=== PATIENT | male | born 1940 | race Caucasian/White ===

== ENCOUNTER → 2016-08-23 | Outpatient (CLI) | payer BC ==
[~2016-08-23] MED LIST: ALPR-411 PO; AMLO-110 PO; ASPI81TA28 PO; ATOR-22 PO; CHOL1000 PO; COEN100C7 PO; ETOD500T95 PO; INSPMPNVLG; LISI40TA PO; MULT-506 PO; OXYC-57 PO
--- NOTE | 2016-08-23 13:34 | DIAGNOSTIC IMAGING REPORT ---
CHEST 2 VIEWS ROUTINE CLINICAL HISTORY: Pulmonary nodule POSTOPERATIVE STUDY COMPARISON STUDY: 08/13/1960 FINDINGS: The cardiac and mediastinal contours remain stable. The subcutaneous emphysema has resolved. There is no pneumothorax. There is no focal pulmonary consolidation. There is blunting of the left lateral costophrenic angle consistent with pleural fluid/scarring. IMPRESSION: 1. Blunting of the left lateral costophrenic angle consistent with pleural fluid/scarring 2. Resolution of the subcutaneous emphysema 3. No evidence of acute parenchymal consolidation Electronically signed by: Tariq Denise M.D. 08/23/2016 1:32 PM
== END | disposition home or self-care (01) ==
LOC: C.RAD1850 10:59
PROVIDERS: ATTEND Surgery
DX: R91.1 Solitary pulmonary nodule (principal)

== ENCOUNTER → 2016-09-13 | Outpatient (CLI) | payer BC ==
--- NOTE | 2016-09-13 16:00 | DIAGNOSTIC IMAGING REPORT ---
LEFT LOWER EXTREMITY VENOUS DOPPLER CLINICAL HISTORY: Lower leg edema. COMPARISON STUDY: Bilateral lower extremity venous Doppler November 27 2012. TECHNIQUE: Sonography of the deep venous system of the left lower extremity was performed. Compression and augmentation were evaluated. FINDINGS: The left common femoral, superficial femoral and popliteal veins were compressible. Augmentation was normal. Flow was shown within the deep calf vessels. Note was made of a 9.3 x 2.3 x 2.8 cm complex cystic abnormality within the left popliteal fossa that extends into the medial left calf. IMPRESSION: 1. No evidence of deep venous thrombus within the left lower extremity. 2. 9.3 x 2.3 x 2.8 cm complex cystic abnormality extending from the left popliteal fossa to the proximal left calf. While nonspecific, the findings favor a popliteal cyst, possibly ruptured. A follow-up ultrasound in 2 months is recommended. Electronically signed by: Randy Ballard M.D. 09/13/2016 3:58 PM Dictated Date/Time: 09/13/2016 3:56 PM
== END | disposition home or self-care (01) ==
LOC: C.ULTR 15:03
PROVIDERS: ATTEND Physical Medicine & Rehabilitation Sports Medicine
DX: R60.0 Localized edema (principal)

== ENCOUNTER → 2016-09-13 | Outpatient (CLI) | payer BC ==
[2016-09-13 12:32] LABS: BASO % 0.5 %; BASO ABS # 0.03 K/uL (0-0.2); COMPLETE YES; EOS % 3.8 %; HEMATOCRIT 42.6 % (42-52); IG% 0.2 %; LYMPH % 27.1 %; LYMPH ABS # 1.65 K/uL (1.2-3.4); MEAN CELL VOLUME 88.8 fL (80-100); MEAN CORPUSCULAR HEMOGLOBIN 31.7 pg (25-34); MEAN CORPUSCULAR HGB CONC 35.7 g/dl (32-36); MEAN PLATELET VOLUME 10.6 fL (7.4-10.4); MONO % 13.6 %; NEUT % 54.8 %; PLATELET COUNT 155 K/uL (130-400); WHITE BLOOD COUNT 6.09 K/uL (4.8-10.8)
[2016-09-13 12:45] LABS: ALKALINE PHOSPHATASE 104 U/L (45-117); ALT/SGPT 41 U/L (12-78); AST/SGOT 26 U/L (15-37); BLOOD UREA NITROGEN 19 mg/dl (7-18); BUN/CREATININE RATIO 22.6 (10-20); CALCIUM 9.5 mg/dl (8.5-10.1); CARBON DIOXIDE 29 mmol/L (21-32); CHLORIDE 105 mmol/L (98-107); CREATININE 0.82 mg/dl (0.60-1.40); GLUCOSE 66 mg/dl (70-99); POTASSIUM 3.9 mmol/L (3.5-5.1); SODIUM 141 mmol/L (136-145)
[2016-09-13 12:47] LABS: ALB/GLOB RATIO 0.9 (0.9-2); C-REACTIVE PROTEIN 0.74 mg/dl (0-0.29)
[2016-09-13 13:09] LABS: ESTIMATED AVERAGE GLUCOSE 140 mg/dl; HA1C FLAG Normal (Normal)
[2016-09-15 15:13] LABS: QUANTIF TB AG-NIL <0.00 IU/ML; QUANTIFERON NIL 0.42 IU/ML
[2016-09-15 15:59] LABS: 18KDIGG BAND NONREACTIVE (NONREACTIVE); 23KDIGG BAND NONREACTIVE (NONREACTIVE); 23KDIGM BAND NONREACTIVE (NONREACTIVE); 28KDIGG BAND NONREACTIVE (NONREACTIVE); 30KDIGG BAND NONREACTIVE (NONREACTIVE); 39KDIGG BAND NONREACTIVE (NONREACTIVE); 39KDIGM BAND NONREACTIVE (NONREACTIVE); 41KDIGG BAND NONREACTIVE (NONREACTIVE); 41KDIGM BAND NONREACTIVE (NONREACTIVE); 45KDIGG BAND NONREACTIVE (NONREACTIVE); 58KDIGG BAND NONREACTIVE (NONREACTIVE); 66KDIGG BAND NONREACTIVE (NONREACTIVE); 93KDIGG BAND NONREACTIVE (NONREACTIVE)
== END | disposition home or self-care (01) ==
LOC: C.LAB1850 10:16
PROVIDERS: ATTEND Internal Medicine Infectious Disease
DX: E55.9 Vitamin D deficiency, unspecified (principal); E10.9 Type 1 diabetes mellitus without complications; M25.562 Pain in left knee; R60.0 Localized edema

== ENCOUNTER → 2016-09-21 | Outpatient (CLI) | payer BC ==
--- NOTE | 2016-09-21 09:02 | DIAGNOSTIC IMAGING REPORT ---
CHEST 2 VIEWS ROUTINE CLINICAL HISTORY: R91.1 Lung nodule seen on imaging [id number] lung nodule COMPARISON STUDY: 08/23/2016 FINDINGS: Chronic blunting left lateral costophrenic angle. This radiographically is slightly improved from the prior exam. Lungs otherwise are clear. No evidence for cardiac enlargement. Moderate degenerative change thoracic spine. IMPRESSION: Stable to slightly improved exam. Moderate residual scarring left lateral costophrenic angle. No acute or interval process. Electronically signed by: Yemi Doshi M.D. 09/21/2016 9:01 AM Dictated Date/Time: 09/21/2016 8:58 AM
== END | disposition home or self-care (01) ==
LOC: C.RAD1850 08:35
PROVIDERS: ATTEND Internal Medicine
DX: R91.1 Solitary pulmonary nodule (principal); J18.8 Other pneumonia, unspecified organism

== ENCOUNTER → 2016-09-21 | Outpatient (CLI) | payer BC ==
--- NOTE | 2016-10-08 10:07 | CODING QUERY NO DIAGNOSIS ---
TREATMENT RENDERED WITHOUT A DIAGNOSIS Dr. Mireles, To promote full compliance with coding requirements relating to patient care, physician participation is requested in all cases of generation technician uncertainty. Please assist us with providing a diagnosis/symptom for the test(s) below: A diagnosis/symptom was not documented on your Order. A valid diagnosis/symptom is required to bill all insurances. Please remember that we are unable to code a diagnosis of rule out, probable, possible, questionable, or suspected. Tests that require a diagnosis: * AFB SEQUENCING AND STAIN DIAGNOSIS: DATE OF SERVICE: 09/21/16 Provider Signature: Date: Thank you Mike Markham [facility] Once completed, please kindly fax back to [phone] For questions please call [phone]
== END | disposition home or self-care (01) ==
LOC: C.LABSPEC 12:58
PROVIDERS: ATTEND Pathology Anatomic Pathology & Clinical Pathology
DX: J18.8 Other pneumonia, unspecified organism (principal)

== ENCOUNTER → 2016-10-15 | Outpatient (CLI) | payer BC ==
[2016-10-15 13:46] LABS: ESTIMATED AVERAGE GLUCOSE 140 mg/dl; HA1C FLAG Normal (Normal)
== END | disposition home or self-care (01) ==
LOC: C.LAB1850 12:22
PROVIDERS: ATTEND Internal Medicine Endocrinology, Diabetes & Metabolism
DX: E10.9 Type 1 diabetes mellitus without complications (principal)

== ENCOUNTER → 2016-10-15 | Outpatient (CLI) | payer BC ==
--- NOTE | 2016-10-15 15:46 | DIAGNOSTIC IMAGING REPORT ---
LEFT KNEE 3 VIEWS HISTORY: LEFT KNEE PAIN COMPARISON: None. FINDINGS: There is a left total knee arthroplasty. The hardware appears intact. No fracture or dislocation. No abnormal periprosthetic lucency. Mild osteoarthritis within the medial compartment of the right knee. Moderate left knee effusion. IMPRESSION: 1. Left total knee arthroplasty. The hardware appears intact. 2. Moderate left knee effusion. Electronically signed by: Nav Calloway M.D. 10/15/2016 3:45 PM Dictated Date/Time: 10/15/2016 3:44 PM
== END | disposition home or self-care (01) ==
LOC: C.RDSM 11:35
PROVIDERS: ATTEND Physical Medicine & Rehabilitation Sports Medicine
DX: M25.562 Pain in left knee (principal); Z96.652 Presence of left artificial knee joint; M25.462 Effusion, left knee; E10.9 Type 1 diabetes mellitus without complications

== ENCOUNTER → 2017-01-20 | Outpatient (CLI) | payer BC ==
[2017-01-20 12:35] LABS: ESTIMATED AVERAGE GLUCOSE 169 mg/dl; HA1C FLAG Normal (Normal)
[2017-01-20 12:49] LABS: CREATININE 0.86 mg/dl (0.60-1.40)
[2017-01-20 12:59] LABS: CHOLESTEROL 115 mg/dl (0-200); CHOLESTEROL/HDL RATIO 2.3; HDL CHOLESTEROL 51 mg/dl; LDL CHOLESTEROL CALCULATED 54 mg/dl; TRIGLYCERIDES 52 mg/dl (0-150); VERY LOW DENSITY LIPOPROT CALC 10 mg/dl
== END | disposition home or self-care (01) ==
LOC: C.LAB1850 10:44
PROVIDERS: ATTEND Internal Medicine Endocrinology, Diabetes & Metabolism
DX: I10 Essential (primary) hypertension (principal); E78.5 Hyperlipidemia, unspecified; E10.42 Type 1 diabetes mellitus with diabetic polyneuropathy; R20.0 Anesthesia of skin; E55.9 Vitamin D deficiency, unspecified; E10.21 Type 1 diabetes mellitus with diabetic nephropathy; R80.9 Proteinuria, unspecified

== ENCOUNTER → 2017-04-21 | Outpatient (CLI) | payer BC ==
[~2017-04-21] MED LIST changes: -OXYC-57 PO
[2017-04-21 12:49] LABS: ESTIMATED AVERAGE GLUCOSE 160 mg/dl; HA1C FLAG Normal (Normal)
== END | disposition home or self-care (01) ==
LOC: C.LAB1850 10:02
PROVIDERS: ATTEND Internal Medicine Endocrinology, Diabetes & Metabolism
DX: E10.9 Type 1 diabetes mellitus without complications (principal)

== ENCOUNTER → 2017-08-02 | Outpatient (CLI) | payer BC ==
[2017-08-02 17:55] LABS: RATIO 129.3 mcg/mg (0-30.0)
[2017-08-03 07:56] LABS: ESTIMATED AVERAGE GLUCOSE 163 mg/dl; HA1C FLAG Normal (Normal)
== END | disposition home or self-care (01) ==
LOC: C.LAB1850 16:21
PROVIDERS: ATTEND Internal Medicine Endocrinology, Diabetes & Metabolism
DX: E10.9 Type 1 diabetes mellitus without complications (principal)

== ENCOUNTER → 2017-11-11 | Outpatient (CLI) | payer BC ==
[~2017-11-11] MED LIST changes: +ASCO10003 PO; +GLUCTAB7 PO; +MISCCAP80 PO
== END | disposition home or self-care (01) ==
LOC: C.LABSPEC 10:08
PROVIDERS: ATTEND Urology
DX: R32 Unspecified urinary incontinence (principal)

== ENCOUNTER → 2017-11-24 | Outpatient (CLI) | payer BC | END | disposition home or self-care (01) | LOC: C.LAB 13:07 | PROVIDERS: ATTEND Nurse Practitioner Adult Health | DX: N39.0 Urinary tract infection, site not specified (principal) ==

== ENCOUNTER → 2018-01-03 | Outpatient (CLI) | payer BC ==
[2018-01-04 06:04] LABS: HEMOGLOBIN A1C 6.4 % (4.5-5.6)
== END | disposition home or self-care (01) ==
LOC: C.LAB1850 17:11
PROVIDERS: ATTEND Internal Medicine Endocrinology, Diabetes & Metabolism
DX: E10.9 Type 1 diabetes mellitus without complications (principal)

== ENCOUNTER → 2018-03-20 | Outpatient (CLI) | payer BC ==
[~2018-03-20] MED LIST changes: -AMLO-110 PO; +AMLO5TAB3 PO
--- NOTE | 2018-03-20 17:08 | DIAGNOSTIC IMAGING REPORT ---
LEFT HIP 2 VIEWS HISTORY: L HIP INJURY COMPARISON: None. FINDINGS: There is no fracture or dislocation. Soft tissues are unremarkable. The visualized pelvic bones are intact. Cartilage spaces are maintained for age. IMPRESSION: No fracture or dislocation within the left hip. Electronically signed by: Nav Calloway M.D. 03/20/2018 5:07 PM Dictated Date/Time: 03/20/2018 5:06 PM
== END | disposition home or self-care (01) ==
LOC: C.RAD 15:56
PROVIDERS: ATTEND Chiropractor Orthopedic
DX: S70.02XA Contusion of left hip, initial encounter (principal); X58.XXXA Exposure to other specified factors, initial encounter

== ENCOUNTER 2020-07-15 06:42 | Inpatient (IN) ==
--- NOTE | 2020-06-05 13:32 | PAT Medication Instructions ---
Medication Instructions Date of Service June 05, 2020 Home Medications Medication Instructions Recorded amlodipine 5 mg tablet 5 mg PO QPM #90 tab 05/30/19 atorvastatin 20 mg tablet 20 mg PO PM #90 tab 05/30/19 lisinopril 40 mg tablet 40 mg PO QPM #90 tab 05/30/19 Novolog U-100 Insulin aspart 100 150 units CONTINUOUS SUBCUTANEOUS 10/29/19 unit/mL subcutaneous solution INFUSION DAILY #140 ml NS Vitamin C 1 g PO BID alprazolam [Xanax] 0.125 mg PO HS PRN cholecalciferol (vitamin D3) [Vitamin D3] 5,000 unit PO QAM coenzyme Q10 [CoQ-10] 200 mg PO QAM etodolac 500 mg PO BID PRN multivitamin 1 tab PO QAM amlodipine 5 mg tablet 5 mg PO QPM atorvastatin 20 mg tablet 20 mg PO PM lisinopril 40 mg tablet 40 mg PO QPM omega 0-qro-uoz-fish oil 1,000 mg (120 mg-180 mg) capsule 2 cap PO DAILY vitamin E 200 unit capsule 400 units PO QAM Novolog U-100 Insulin aspart 100 unit/mL subcutaneous solution 150 units CONTINUOUS SUBCUTANEOUS INFUSION DAILY ASK your surgeon for instructions etodolac 500 mg PO BID PRN STOP taking 2 weeks before surgery coenzyme Q10 [CoQ-10] 200 mg PO QAM omega 5-pgv-sfx-fish oil 1,000 mg (120 mg-180 mg) capsule 2 cap PO DAILY vitamin E 200 unit capsule 400 units PO QAM DO NOT take the morning of surgery Vitamin C 1 g PO BID cholecalciferol (vitamin D3) [Vitamin D3] 5,000 unit PO QAM multivitamin 1 tab PO QAM Take evening before surgery Vitamin C 1 g PO BID alprazolam [Xanax] 0.125 mg PO HS PRN (if needed) amlodipine 5 mg tablet 5 mg PO QPM atorvastatin 20 mg tablet 20 mg PO PM lisinopril 40 mg tablet 40 mg PO QPM Novolog U-100 Insulin aspart 100 unit/mL subcutaneous solution 150 units CONTINUOUS SUBCUTANEOUS INFUSION DAILY (set insulin pump to basal rate at midnight prior to surgery and do not bolus insulin morning of surgery) OTHERWISE NOTHING TO EAT OR DRINK AFTER MIDNIGHT Other Notes If you have any questions please call us at [phone] or [phone] or [phone] or [phone]
--- NOTE | 2020-06-09 08:27 | Anesthesiology Consultation ---
Date of Service June 09, 2020 Assessment & Plan (1) Encounter for pre-operative examination: Chart Review Chart Review: Acceptable Risk for Surgery (pending preop Covid testing and urology note from 07/02/20 ) and Patient seen in Pre Admission Testing - Check BSG AM DOS Hx of urethral stricture - patient self caths 3 x weekly- pt is very hesitant to have urinary cath prior to surgery. Surgeon's office is aware- patient is seeing urology on 07/02/20- will make sure urology does not have any specific recommendations Per PAT appt on 06/09/20, patient denies any recent travel. No known Covid positive contacts or Covid related symptoms. Educated patient to follow up with surgeon's office regarding Covid testing. Educated on importance of self quarantining, social distancing and wearing mask in public both for the patient and household contacts. Seen by cardio 05/02/20= seen for preop cardio consultation. " Risks explained. No further cardiac testing is needed at this time. No overt cardiac contraindications to surgery as scheduled. " Recommend periodically routine resting echocardiography and ambulatory electrocardiograms given the frequent asymptomatic premature ventricular complexes. Robotic assisted laparoscopic left inguinal hernia repair 10/30/2018 = done under [facility] with [facility] #2. ETT #8.0. No anesthesia issues noted per anesthesia record. Teaching & Discussion Pre-Anesthesia Teaching/Discussion Notes: Instructed NPO after midnight before surgery,except medications with 15 cc of water. Medication instructions provided according to the PAT guidelines. History Surgery Operation Date: 07/15/20 07:00 Proposed Procedures p Left Total Knee Revision - Devaughn Cantu MD Height/Weight Height: 6 ft Weight: 87.5 kg Allergies Allergy/AdvReac Type Severity Reaction Status Date / Time shellfish derived Allergy Severe SWELLING Verified 05/29/20 13:33 OF THROAT diltiazem Allergy Unknown UNKNOWN Verified 05/29/20 13:33 fentanyl Allergy Unknown LOOOPY Verified 06/09/20 08:31 FEELING-DIDN'T FEEL RIGHT simvastatin Allergy Unknown UNKNOWN Verified 05/29/20 13:33 Sulfa (Sulfonamide AdvReac Unknown GI SYMPTOMS Verified 05/29/20 13:33 Antibiotics) Medications Home Medications Medication Instructions Recorded Confirmed Last Taken Vitamin C 1 g PO BID 09/21/18 05/29/20 Unknown alprazolam [Xanax] 0.125 mg PO HS PRN 09/21/18 05/29/20 Unknown cholecalciferol (vitamin D3) 5,000 unit PO QAM 09/21/18 05/29/20 Unknown [Vitamin D3] coenzyme Q10 [CoQ-10] 200 mg PO QAM 09/21/18 05/29/20 Unknown etodolac 500 mg PO BID PRN 09/21/18 05/29/20 Unknown multivitamin 1 tab PO QAM 09/21/18 05/29/20 Unknown amlodipine 5 mg tablet 5 mg PO QPM #90 tab 05/30/19 05/29/20 Unknown atorvastatin 20 mg tablet 20 mg PO PM #90 tab 05/30/19 05/29/20 Unknown lisinopril 40 mg tablet 40 mg PO QPM #90 tab 05/30/19 05/29/20 Unknown omega 1-imk-qsw-fish oil 1,000 mg 2 cap PO DAILY cap 07/23/19 05/29/20 Unknown (120 mg-180 mg) capsule vitamin E 200 unit capsule 400 units PO QAM cap 07/23/19 05/29/20 Unknown Novolog U-100 Insulin aspart 100 150 units CONTINUOUS SUBCUTANEOUS 10/29/1904/10 Unknown unit/mL subcutaneous solution INFUSION DAILY #140 ml NS Past Medical History Medical History (Updated 06/09/20 @ 15:31 by Jaclyn Leonard PA-C) Arrhythmia follows with Dr. 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 Does have to self cath three times weekly History of melanoma S/p removal History of sepsis 2012 R/T INFECTION POST ORAL SURGERY Hyperlipidemia Hypertension IDDM (insulin dependent diabetes mellitus) Insulin pump in place Mass of left lung H/O, this was resected Ureteral stricture Exercise / Class Metabolic Activity II 4-5 Yardwork/Stairs/Walk up hill (one flight of stairs- no chest pain or SOB- increased knee pain ) Past Family History Family History Mother Family history of diabetes mellitus Past Surgical History Surgical History H/O left inguinal hernia repair 10/30/2018 [facility] History of carpal tunnel release RT History of colonoscopy History of cystoscopy History of dilation of urethra History of esophagogastroduodenoscopy (EGD) History of lumbar spinal fusion L4-L5; TITANIUAM SCREWS X 2 PRESENT History of melanoma excision History of oral surgery History of surgery THORACOSCOPY W/ LLL WEDGE RESECTION R/T BENIGN MASS History of tonsillectomy History of total knee replacement LT - 2012 Past Anesthesia History No Hx of Anesthesia Complications and No Family Hx of Anesthesia Complications History of PONV History of PONV (only with ether - no issues in the past 30 years ) and Hx of Motion Sickness Social History Smoking Status: Never smoker Do You Dip or Chew Tobacco: No Hx Alcohol Use: Yes Alcohol type: wine alcohol intake frequency: a few times a week Hx Substance Use: No substance use type: does not use Review of Systems Occ snoring- when really fatigued Patient denies chest pain, shortness of breath, dyspnea on exertion, reflux, cough, wheezing, palpitations. No hx of seizures, stroke, MD. No hx of blood clots or blood transfusions Physical Exam Vital Signs VITALS BP 141/73 P 68 TEMP 98.3 SP02 97% RESP 16 Constitutional no acute distress ENMT Mouth: no TMJ clicking Thyromental Distance: > or= 3.5 Finger Breadths (4.0) Mallampati Class: I Full upper denture Missing bottom molars Caps to molars on bottom Neck + limited neck extension (mild ) Respiratory normal respiratory effort; no respiratory distress Auscultation: lungs clear to auscultation bilaterally; no wheezes Cardiovascular Rate/Rhythm: regular rate and regular rhythm (occasional extra beat ) Heart Sounds: no murmur Vessels: no carotid bruit Musculoskeletal Spine: no pain with cervical ROM Neurologic moves all extremities Psychiatric Orientation: alert Testing Laboratory Results 06/09/20 08:58 06/09/20 08:58 PT 11.5 Seconds (9.0-12.0) 06/09/20 08:58 INR 1.1 (0.9-1.1) 06/09/20 08:58 APTT 28.1 Seconds (21.0-31.0) 06/09/20 08:58 Hemoglobin A1c 7.1 % (4.5-5.6) H 06/09/20 08:58 Blood Type AB Negative 06/09/20 08:58 Antibody Screen NEGATIVE 06/09/20 08:58 Electrocardiogram Date: 05/02/20 Sinus rhythm with first-degree AV block with frequent PVCs at 72 bpm. Right bundle branch block. Compared to EKG from September 21, 2019no significant change was found per cardio. (EKG done at cardio clearance appt) Chest X-Ray Date: 06/09/20 Findings: + NAD There is minor left basilar atelectasis/scarring. Echocardiogram Date: 03/16/18 EF: 60-64% LV Function: normal RWMA: + none Other Findings: + LVH (Moderate concentric) and + diastolic dysfunction (mildly abnormal (Grade I)) Valvular Disease: + MR (Mild secondary) Stress Test Date: 04/11/20 Type: nuclear Gated SPECT imaging reveals normal myocardial thickening and wall motion. Stress EKG response was negative for ischemia with ongoing right bundle branch block with resultant repolarization abnormalities and upsloping ST segments noted in the inferior and lateral leads. LV EF= 64%. Frequent PVCs were noted on resting and stress EKG tracings.
--- NOTE | 2020-06-09 09:24 | XRay Report ---
XR chest Pre-admission PA/Lat CLINICAL HISTORY: Preoperative chest COMPARISON STUDY: 08/13/2016 FINDINGS: The cardiac and mediastinal contours are normal. There is no evidence of focal pulmonary co nsolidation. There is no evidence of failure. No pleural effusions are visualized.[There is minor lef t basilar atelectasis/scarring. Degenerative changes are present within the dorsal spine. IMPRESSION: No active disease in the chest. ACT 112: Negative or not required by law. Electronically signed by: Tariq Denise M.D. 06/09/2020 9:22 AM
[2020-06-09 10:13] LABS: Basophils # (auto) 0.01 K/uL (0-0.2); Basophils % (auto) 0.2 %; Eosinophils # (auto) 0.07 K/uL (0-0.5); Eosinophils % (auto) 1.5 %; Hematocrit (blood only) 40.4 % (42-52); Immature Granulocytes # (auto) 0.01 K/uL (0.00-0.02); Immature Granulocytes % (auto) 0.2 %; Lymphocytes # (auto) 1.14 K/uL (1.2-3.4); Lymphocytes % (auto) 24.8 %; Mean Corpuscular Hemoglobin 32.2 pg (25-34); Mean Corpuscular Hgb Conc 34.7 g/dL (32-36); Mean Corpuscular Volume 92.9 fL (80-100); Mean Platelet Volume 10.8 fL (7.4-10.4); Monocytes # (auto) 0.45 K/uL (0.11-0.59); Monocytes % (auto) 9.8 %; Neutrophils # (auto) 2.91 K/uL (1.4-6.5); Neutrophils % (auto) 63.5 %; Platelet Count 163 K/uL (130-400); RDW Coefficient of Variation 12.1 % (11.5-14.5); Red Blood Count 4.35 M/uL (4.7-6.1); White Blood Count 4.59 K/uL (4.8-10.8)
[2020-06-09 10:33] LABS: INR 1.1 (0.9-1.1); Partial Thromboplastin Time 28.1 Seconds (21.0-31.0); Prothrombin Time 11.5 Seconds (9.0-12.0)
[2020-06-09 10:41] LABS: Estimated Average Glucose 157 mg/dl; Hemoglobin A1C 7.1 % (4.5-5.6)
[2020-06-09 10:59] LABS: BUN Creatinine Ratio 27.8 (10-20); Blood Urea Nitrogen 26 mg/dl (7-18); Calcium 9.3 mg/dl (8.5-10.1); Carbon Dioxide 32 mmol/L (21-32); Chloride 104 mmol/L (98-107); Creatinine Clr Calc Pharmacy 67.6 ml/min; Est GFR (African American) 87.8; Est GFR (Non-African American) 75.7; Glucose 218 mg/dl (70-99); Potassium 4.7 mmol/L (3.5-5.1); Sodium 140 mmol/L (136-145)
[2020-06-09 11:00] LABS: C Reactive Protein < 0.29 mg/dl (0-0.29)
--- NOTE | 2020-07-10 21:46 | History and Physical Report ---
DATE OF ADMISSION: 07/15/2020 CHIEF COMPLAINT: Left knee pain, discomfort and recurrent swelling after knee replacement surgery. HISTORY OF PRESENT ILLNESS: The patient is an 79-year-old gentleman well known to me from multiple orthopedic procedures and visits in the past. I had actually scoped his left knee back in 2010. He continued to have persistent pain and then went to had a knee replacement done by Dr. Peralta in 2012. This was done with the [employer] Journey II knee. He has been pretty miserable ever since then. He had no obvious infection or problems with wound healing. He has had recurrent swelling. There was one question of an infected bursa at some point, but really did not way out anything obvious that needed further intervention surgically. He has continued to have persistent pain, discomfort and swelling in his knee. He continues to maintain a pretty active lifestyle, but it hurts him and bothers him all the time. We did an infectious workup with a normal sed rate and C-reactive protein on several occasions. We aspirated his knee as well with a negative culture and a negative Synovasure test. X-rays show fairly significant lucency around the femoral component, particularly anterior flange and some slight lucencies around the tibial tray. He is hoping to have this revised and improved. He did have a bone scan, was suggested and possible aseptic loosening as well. We had scheduled him for surgery several occasions where he has canceled for several reasons. He now would like to consider revising this. PAST MEDICAL HISTORY: 1. Diabetes with insulin pump. 2. Hypertension. 3. Elevated cholesterol. 4. Low back pain status post fusion. PAST SURGICAL HISTORY: Include: 1. Left knee replacement done 06/15/2013. 2. Left knee arthroscopy done in 09/2010. 3. Lung resection. 4. Spinal fusion in 2018. 5. Herniorrhaphy. 6. Right carpal tunnel release. 7. TURP. ALLERGIES: FENTANYL, SIMVASTATIN, SULFA, SHELLFISH, DILTIAZEM. CURRENT MEDICINES: 1. Xanax 0.5 mg at bedtime p.r.n. 2. Amlodipine. 3. Vitamin C. 4. Atorvastatin. 5. Vitamin D3. 6. Coenzyme Q. 7. Benadryl. 8. Etodolac. 9. Lisinopril. 10. Methenamine. 11. Multivitamin. 12. Insulin. 13. Vitamin E. 14. Fish oil. SOCIAL HISTORY: An 79-year-old male. He is . He does not smoke. No significant alcohol intake. FAMILY HISTORY: Noncontributory. REVIEW OF SYSTEMS: Significant for long-term diabetes with an A1c of 7.1. No current chest pain or shortness of breath. No history of DVT or PE. No known bleeding problems. He does have problems urinating due to this TURP procedure. PHYSICAL EXAMINATION: GENERAL: Shows a pleasant elderly male. Looks to be in pretty good shape. Looks younger than his stated age. HEENT: Benign. NECK: Supple, no lymphadenopathy. LUNGS: Clear to auscultation. HEART: Has a regular rate and rhythm. ABDOMEN: Soft, nontender, nondistended. EXTREMITIES: Grossly neurovascularly intact except as follows: Examination of the left knee reveals the patient ambulates with a slight bit of a limp. He has got a well-healed incision. He has got a moderate size knee effusion. No gross instability to his knee on exam. Range of motion about 5 degrees short of full extension, 120 degrees of flexion. There is no pain with hip motion. He is neurologically intact. X-RAYS: X-rays of the left knee were reviewed and compared to previous films. He has got evidence of the [employer] total knee replacement. He has got lucency underneath the anterior flange of the femoral component, which is pretty chronic and stable. Some slight lucencies around the tibial tray. A bone scan was reviewed. Does show some moderate uptake around the tibial tray and some fairly mild uptake around the femur. This suggestive of a possible lucency. LABS: He has had multiple labs which show a normal sed rate and C-reactive protein. His ___ white cell count was only 125 white cells with 22% polys. His cultures both his Synovasure testing in our lab were no growth. ASSESSMENT: An 79-year-old male 7 years out from a left total knee replacement with persistent pain, discomfort, swelling, unresponsive to conservative measures. Based on his x-ray, bone scan and the knee aspirate I have start to believe he has got some degree of aseptic loosening most likely the femoral component. PLAN: We had a long discussion as far as treatment options. He still continues to maintain a pretty active lifestyle despite this. After extensive were reviewed, we are going to proceed with revision of his left knee. If we get in there and there is infection, we will obviously deal with that, but I think that is unlikely. The risks and benefits of left revision total knee arthroplasty were explained to the patient including but not limited to DVT, PE, , infection, neurological injury, vascular injury, bleeding problem, pain, limited range of motion, stiffness, failure to relieve symptoms, incomplete relief of symptoms, need for further surgery in future, fracture, and persistent pain. The patient understands and desires to proceed. Informed consent was obtained. He apparently has had problems with voiding after his TURP. I want to check with the urologist, may need to place his Be catheter preoperatively. He is hoping to be discharged to home. He will likely need some home health.
[~2020-07-15 06:42] MED LIST changes: +ACETAMINOPHEN 500 MG TAB PO SCH; -ALPR-411 PO; -AMLO5TAB3 PO; -ASCO10003 PO; -ASPI81TA28 PO; -ATOR-22 PO; +BUPIVACAINE 0.25% 30 ML VIAL ONE; +BUPIVACAINE 0.5 % 5 MG/1 ML PF 10ML VIAL ONE; +BUPIVACAINE LIPOSOME/PF 266 MG, BUPIVACAINE/EPINEPHRINE 50 ML, SODIUM CHLORIDE 0.9% 30 ... INFIL SCH; -CHOL1000 PO; -COEN100C7 PO; -ETOD500T95 PO; +FAMOTIDINE 20 MG TAB PO SCH; +GABAPENTIN 300 MG CAP PO SCH; -GLUCTAB7 PO; -INSPMPNVLG; -LISI40TA PO; +LR 500ML BOLUS, THEN 15ML/HR IV SCH; +LR 60ML/HR IV SCH; +METOCLOPRAMIDE HCL 10 MG TABLET PO SCH; +MIDAZOLAM HCL 1 MG/ML 2ML VIAL ONE; -MISCCAP80 PO; -MULT-506 PO; +TRANEXAMIC ACID 1,000 MG **IV Intra-op IV SCH; +ceFAZolin 2000MG 2,000 MG/15 ML SYR IV SCH
--- NOTE | 2020-07-15 06:53 | History & Physical Bridge Note ---
Date of Service July 15, 2020 History & Physical Bridge Note I have examined the patient, reviewed the History & Physical and in the interval since the performance of the History & Physical I have noted the following changes of clinical significance: no changes noted
[2020-07-15] MEDS ORDERED: ePHEDrine sulfate 50 MG/ML AMP IV PRN (08:19)
[2020-07-15] MEDS ORDERED: ONDANSETRON INJ 2 MG/ML 2 ML VIAL IV PRN ×2 (08:19→13:36)
[2020-07-15] MEDS ORDERED: ATROPINE SULFATE 0.1 MG/ML 10ML SYR IV PRN (08:19)
[2020-07-15] MEDS ORDERED: SODIUM CHLORIDE 0.9% PF 50 ML VIAL ONE (08:30)
[2020-07-15] MEDS ORDERED: BUPIVACAINE LIPOSOME 1.3% 266 MG/20 ML VIAL ONE (08:31)
[2020-07-15] MEDS ORDERED: EPINEPHrine INJ 1 MG/ML AMP ONE (08:31)
[2020-07-15] MEDS ORDERED: BACITRACIN INJ 50,000 UNIT VIAL ONE ×2 (08:31→11:24)
[2020-07-15] MEDS ORDERED: VANCOMYCIN HCL 1000MG/20ML VIAL ONE (08:32)
[2020-07-15] MEDS ORDERED: BUPIVACAINE 0.25% 30 ML VIAL ONE (08:32)
[2020-07-15] MEDS ORDERED: PROPOFOL IV EMULSION 10 MG/ML 20 ML VIAL IV ONE ×4 (09:06→10:39)
--- NOTE | 2020-07-15 12:34 | Post Operative Brief Note ---
PG Immediate Post Op with CF Date of Surgery July 15, 2020 Pre & Post Diagnosis Operation Date: 07/15/20 08:20 Pre-Op Diagnosis: Painful Loosening Left Total Knee Replacement Post-Op Diagnosis: Painful Loosening Left Total Knee Replacement I identified the patient and participated in the time-out.: Yes Procedure Operation Date: 07/15/20 08:20 Actual Procedures p Revision Left Total Knee Replacement(Left) - Devaughn Cantu MD Surgeon Devaughn Cantu MD Pilot Captain Waylon, PAC Estimated Blood Loss 200 Findings Consistent with Post-Op Diagnosis Fluids 500 cc Specimens Specimen Description: Culture 1. Left knee joint Frozen Section 1. Left knee synovium (WBC under a high Power field) Permanent Specimen A. Explants Right total knee replacement B. Bone and Tissue left knee Drains Be Catheter (Pt came to OR with Be catheter in place. ) Anesthesia Type Spinal MAC Complications none Disposition Accompanied Patient To Recovery: Yes Disposition: Recovery Room
--- NOTE | 2020-07-15 12:56 | Anesthesiology Progress Note ---
Date of Service July 15, 2020 Anesthesia Post Procedure Vital Signs Vital Signs: Temp Pulse Pulse Resp BP BP Pulse Ox 07/15/20 12:50 62 16 130/80 99 07/15/20 12:40 70 16 159/80 H 94 07/15/20 12:31 36.6 C 70 16 129/68 99 07/15/20 07:52 63 18 154/94 H 07/15/20 07:09 36.7 C 60 20 167/95 H 97 Transfer of Care Handoff Completed per policy Notes Mental Status: alert / awake / arousable and participated in evaluation Patient Amnestic to Procedure: Yes Nausea / Vomiting: adequately controlled Pain: adequately controlled Airway Patency, RR, SpO2: stable & adequate BP & HR: stable & adequate Hydration State: stable & adequate Neuraxial Anesthesia: was administered and sensory block is resolving Anesthetic Complications: no major complications apparent and Pt Satisfied with anesthetic care
--- NOTE | 2020-07-15 13:01 | XRay Report ---
LEFT KNEE 2 VIEWS History: Left total knee arthroplasty. Degenerative arthritis. Postop. FINDINGS: The patient is status post a left total knee arthroplasty. The hardware is intact. No fract ure or dislocation. Skin fabiola are in place. IMPRESSION: Left total knee arthroplasty. No evidence for hardware complication. ACT 112: Negative or not required by law. Electronically signed by: Nav Calloway M.D. 07/15/2020 1:00 PM
[2020-07-15] MEDS ORDERED: HYDROmorphone INJ 0.5 MG/0.5 ML SYR IV PRN (13:36)
[2020-07-15] MEDS ORDERED: NALOXONE HCL 0.4 MG/1 ML VIAL/CARP IV PRN (13:36)
[2020-07-15] MEDS ORDERED: TAMSULOSIN HCL 0.4 MG CAP PO PRN (13:36)
[2020-07-15] MEDS ORDERED: MAGNESIUM HYDROXIDE SUSP 30 ML UDC PO PRN (13:36)
[2020-07-15] MEDS ORDERED: METOCLOPRAMIDE HCL INJ 5 MG/ML 2 ML VIAL IV PRN (13:36)
[2020-07-15] MEDS ORDERED: ALPRAZolam 0.25 MG TABLET PO PRN (13:36)
[2020-07-15] MEDS ORDERED: bisacodyL 10 MG SUPP PR PRN (13:36)
[2020-07-15] MEDS ORDERED: ALUMINUM/MAGNESIUM SUSP 30 ML UDC PO PRN (13:36)
[2020-07-15] MEDS ORDERED: PHARMACY GLYCEMIC MGMT CONSULT PRN (13:59)
[2020-07-15] MEDS ORDERED: GLUCOSE 10 TABS/TUBE PO PRN (14:00)
[2020-07-15] MEDS ORDERED: DEXTROSE 50% 50 ML SYRINGE IV PRN (14:00)
[2020-07-15] MEDS ORDERED: CARBOHYDRATES FOR HYPOGLYCEMIA PO PRN (14:00)
[2020-07-15] MEDS ORDERED: GLUCAGON FOR INJ 1 MG VIAL SQ PRN (14:00)
[2020-07-15] MEDS ORDERED: GLUCOSE 40% GEL 15 GM TUBE PO PRN (14:00)
[2020-07-15] MEDS ORDERED: INSULIN ASPART 100 UNITS/ML VIAL SC PRN (14:00)
--- NOTE | 2020-07-15 14:20 | Pharmacy Report ---
Pharmacy Glycemic Short Note 2 - Date of Service July 15, 2020 - Glycemic Short BSG Results (Last 24 hours): 07/15/20 07/15/20 07:16 12:35 POC Glucose 232 H 178 H OUTPATIENT ANTIDIABETIC REGIMEN: * Novolog insulin pump * HbA1c: 7.1% (06/09/20) ASSESSMENT: * Mr Christian is an 79yo diabetic male, POD 0 s/p L TKA this morning w/ Dr Cantu. * BSGs are reasonable post-op. It does not appear as though pt received any intra-operative steroids. Pt ordered diabetic diet. * Patient's pump remains connected and infusing. Will continue pt own pump as long as BSGs are stable, per Insulin Pump Policy. PLAN FOR INPATIENT GLYCEMIC CONTROL: * Continue pt's insulin pump PLAN FOR DISCHARGE: * Patient's A1c (7.1%) indicates adequate glycemic control as an outpatient. * Expect that patient may continue home regimen on discharge, as long as he does not report having episodes of hypoglycemia.
[2020-07-15] MEDS: SODIUM CHLORIDE 0.9% 1000ML 1,000 ML IV SCH (14:22)
[2020-07-15] MEDS: HYDROmorphone HCL 2 MG TAB PO PRN ×3 (14:23→21:52)
[2020-07-15] MEDS: ACETAMINOPHEN 500 MG TAB PO SCH ×2 (14:26→21:52)
[2020-07-15] MEDS: KETOROLAC TROMETHAMINE 15 MG/ML VIAL IV SCH ×2 (14:27→20:04)
[2020-07-15] MEDS ORDERED: ASCORBIC ACID 500 MG TAB PO SCH ×2 (17:00→21:00)
--- NOTE | 2020-07-15 17:35 | Operative Report ---
Post Operative Report Pre & Post Diagnosis Operation Date: 07/15/20 08:20 Pre-Op Diagnosis: Painful Loosening Left Total Knee Replacement Post-Op Diagnosis: Painful Loosening Left Total Knee Replacement I identified the patient and participated in the time-out.: Yes Procedure Operation Date: 07/15/20 08:20 Actual Procedures p Revision Left Total Knee Replacement(Left) - Devaughn Cantu MD Surgeon Devaughn Cantu MD Siphoner [place], PAC Estimated Blood Loss 200 Findings Consistent with Post-Op Diagnosis Operative findings revealed a significant joint effusion. His knee was fairly stiff with about a 10 degree flexion contracture and could bend about 100 degrees. The effusion was more serous today then bloody as it had been in the past. There was no gross loosening of the implants. Moderate synovitis. The synovium really revealed less than 5 polys per high-power field. Fluids 500 cc. Specimens Left knee joint fluid sent for stat Gram stain aerobic anaerobic culture. Synovium sent for frozen section which revealed less than 5 polys per high-power field. Drains None. Complications none Disposition Accompanied Patient To Recovery: No Disposition: Recovery Room Indications Patient is an 79-year-old gentleman who is now 7 years out from a left knee replacement done elsewhere. He has been pretty miserable with his knee from the beginning. He had several work-ups for infection which were all negative. 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 It was felt that this implant was likely loose. A bone scan was a bit equivocal. He has had several work-ups for infection which have all been negative. He failed all conservative measures. He elected proceed with revision surgery. Description of Procedure Operative implants consist of: 1. Biomet Vanguard 360 left 72.5 posterior stabilized femoral component with a 2.5 mm offset and an 18 x 80 mm stem with a left lateral 5 mm augment.. 2. Biomet Vanguard III 60 size 79 tibial tray with a 2.5 mm offset, 16 x 80 mm stem and a small cruciate wing. 3. 20 mm posterior stabilized polyethylene insert. Patient was taken to the operating identified placed on the operating table supine position but all contact areas were properly padded. IV antibiotics tried by anesthesia team. A spinal anesthetic and been implemented in the holding area. A left thigh tip was then placed. Left lower extremities and prepped and draped in usual sterile fashion. Left leg was elevated exsanguinated with use of an Esmarch and turns placed at 300 mmHg. An anterior approach left knee was then performed linear longitudinal incision using the previous incision and extending it both proximally and distally. Sharp dissection was got through subcutaneous tissue down the extensor mechanism. A medial parapatellar arthrotomy incision was made. Some fluid was sent off for stat Gram stain aerobic and anaerobic culture. Subperiosteal dissection was carried out medially. I did a complete synovectomy of the suprapatellar pouch and medial lateral gutters. The synovium was sent for pathology and revealed less than 5 polys per high-power field. I then exposed the lateral lateral aspect of the joint. Great care was taken to protect the patella tendon insertion. I subluxated the patella laterally and flexed the knee. The polyethylene was removed. With the use of a saw along with an osteotome the distal femoral component was then removed without much bone destruction. With the use of a saw and the stacked osteotome technique the tibial tray was elevated and removed. I then removed all the cement from the tibial canal. I then began preparing the bone for the new implants. The proximal tibia was entered with the canal initiator. I reamed up to a size 16. I then placed the IM cutting guide on the IM heydi and the proximal tibial cut was made to move out a millimeter bone from the most deficient aspect of the tibia. This did take some fairly large pieces off in some sections. Got excellent bony support. The tibia sized to a size 79. The proximal tibia was prepared for a 80mm x 16 mm stem with a 2.5 mm offset and a small cruciate wing. The implant was assembled and placed and fit nicely. Attention drawn the femur. The distal femur was entered with a sharp drill. I then reamed reamed up to a size 80. I then placed a 5 degree valgus cutting guide. I then cut just do a freshen up cut the most distal aspect of the femur. We drilled intake much bone off. I then sized the femur to a 72.5. The AP cutting block was pinned parallel to the epicondylar axis and the anterior cut, anterior chamfer, posterior cut, posterior chamfer cuts were made. The implant was then assembled with 2.5 mm offset and the canal was prepared for the femoral component. I then placed the trial implant and the box cut was made. The trial implant was then assembled in place. I then trialed the knee and I ended up using a 20 mm posterior stabilized insert. We got excellent stability with this and excellent range of motion. I examined the patella and the patella was fairly well scarred in. There were no signs of significant polyethylene wear or loosening so we elected to leave this alone. At this point the tourniquet was at 112 minutes of left the tourniquet down. I irrigated the wound extensively. While the tourniquet was down we did assembled the implants. Once the implants were assembled I removed the trial implants. The tourniquet was then placed back up after it been down for a total of 12 minutes. A double batch of Palacos G cement was mixed with an additional gram of vancomycin. I then placed the femoral component estimating the metaphysis and the surface. The tibial tray was similarly cemented. The trial 20 mm insert was placed the knee was brought out in full extension total cement hardened. Final cement check was then performed. I then remove the trial implant and examined the knee and the back for any bleeding. I then placed the permanent 20 mm insert. The wound was then irrigated extensively. The tourniquet was then let down for second tourniquet time 24 minutes. Hemostasis assured use electrocautery. The extensor mechanism closed with combination 1 PDS suture #1 Vicryl suture in [id number] fashion. Extensor mechanism checked found to be intact and the subcutaneous tissue then closed with 2 Dexon suture in a buried fashion skin was closed skin fabiola. Leg was then cleaned and dried a sterile dressing both Xeroform, 4 x 4's, sterile cast padding, Jayme bandage were applied. Patient then transferred to the recovery room in stable condition. Patient tolerated procedure well and there were no complications. Jose Hammond, my physician ice cream freezer assistant, was present for the entire procedure. His assistance was essential for appropriate patient positioning, wrapping and draping, surgical exposure, removal of the implants, placement the implants, closure of the wound, and placement of the sterile bandage. I attest to the content of the Intraoperative Record and any orders documented therein. Any exceptions are noted below.
[2020-07-15] MEDS: FERROUS GLUCONATE 324 MG TAB PO SCH (17:36)
[2020-07-15] MEDS: NovoLOG INSULIN PUMP SCH ×2 (17:36→21:52)
[2020-07-15] MEDS: ceFAZolin 2000MG 2,000 MG/15 ML SYR IV SCH (17:41)
[2020-07-15] MEDS ORDERED: TRANEXAMIC ACID / 0.7% NACL 1,000 MG/100 ML BAG IV SCH (18:37)
[2020-07-15] MEDS: ASPIRIN 81 MG ECTAB PO SCH (20:11)
[2020-07-15] MEDS: DOCUSATE SODIUM 100 MG CAP PO SCH (20:11)
[2020-07-15] MEDS: TAPENTADOL HCL ER 50 MG TABCR PO SCH (20:19)
[2020-07-15] MEDS ORDERED: lisinopril 40 MG TAB PO SCH (21:00)
[2020-07-15] MEDS ORDERED: ATORVASTATIN 20 MG TAB PO SCH (21:00)
[2020-07-15] MEDS ORDERED: amLODIPine BESYLATE 5 MG TAB PO SCH (21:00)
[2020-07-15] MEDS ORDERED: SENNA 8.6 MG TAB PO SCH (21:00)
[2020-07-15] MEDS: ASCORBIC ACID 500 MG TAB PO SCH (21:52)
[2020-07-16] MEDS: ceFAZolin 2000MG 2,000 MG/15 ML SYR IV SCH (00:44)
[2020-07-16] MEDS: KETOROLAC TROMETHAMINE 15 MG/ML VIAL IV SCH ×2 (00:45→08:32)
[2020-07-16] MEDS: SODIUM CHLORIDE 0.9% 1000ML 1,000 ML IV SCH (00:45)
[2020-07-16] MEDS: ACETAMINOPHEN 500 MG TAB PO SCH (05:35)
[2020-07-16 07:50] LABS: Hematocrit (blood only) 31.2 % (42-52); Hemoglobin 10.6 g/dL (14.0-18.0); Mean Corpuscular Hemoglobin 32.3 pg (25-34); Mean Corpuscular Volume 95.1 fL (80-100); Mean Platelet Volume 10.2 fL (7.4-10.4); Platelet Count 163 K/uL (130-400); RDW Coefficient of Variation 12.3 % (11.5-14.5); RDW Standard Deviation 42.2 fL (36.4-46.3); Red Blood Count 3.28 M/uL (4.7-6.1); White Blood Count 10.31 K/uL (4.8-10.8)
[2020-07-16 08:22] LABS: BUN Creatinine Ratio 27.2 (10-20); Calcium 8.9 mg/dl (8.5-10.1); Creatinine Clr Calc Pharmacy 66.2 ml/min; Est GFR (African American) 85.6; Est GFR (Non-African American) 73.8; Potassium 4.4 mmol/L (3.5-5.1)
[2020-07-16] MEDS: NovoLOG INSULIN PUMP SCH (08:31)
[2020-07-16] MEDS: FERROUS GLUCONATE 324 MG TAB PO SCH (08:31)
[2020-07-16] MEDS: DOCUSATE SODIUM 100 MG CAP PO SCH (08:32)
[2020-07-16] MEDS: ASPIRIN 81 MG ECTAB PO SCH (08:32)
--- NOTE | 2020-07-16 08:33 | Progress Notes ---
DATE: 07/16/2020 SUBJECTIVE: An 79-year-old gentleman postop day #1 from a left knee revision. He is doing pretty well this morning. Had good night as far as pain goes. No chest pain or shortness of breath. Not feeling dizzy or lightheaded. OBJECTIVE: VITAL SIGNS: Temperature 37.7. Vital signs stable. GENERAL: Shows a pleasant elderly male. He is sitting up in bed, looks completely comfortable. EXTREMITIES: Examination of the left leg reveals the leg to be well aligned. Dressing is clean, dry, and intact. He can dorsiflex and plantarflex his foot appropriately. He can do a good straight leg raise. LABORATORY DATA: Pending. Gram stain from the intraoperative was a few polys, no organisms. Culture is pending. ASSESSMENT: An 79-year-old gentleman postoperative day 1 from a left knee revision, doing pretty well. Pain is controlled. He is neurologically intact. PLAN: 1. DVT prophylaxis including thigh-high TEDs, SCDs, and aspirin twice a day. 2. PT/OT. Weight bear as tolerated. Left total knee protocol. 3. Pain control, doing well with current pain regimen. 4. Be catheter. He has got a catheter in that is going to be managed by Dr. Gaytan, but they are going to leave this in. We will put him on some prophylactic antibiotics due to his recent surgery. 5. Disposition: Plan to discharge to home with some home health hopefully today if he does okay in therapy and pain controlled.
[2020-07-16] MEDS: ASCORBIC ACID 500 MG TAB PO SCH (08:35)
[2020-07-16] MEDS: TAPENTADOL HCL ER 50 MG TABCR PO SCH (08:43)
[2020-07-16] MEDS ORDERED: CHOLECALCIFEROL 1,000 UNITS 25 MCG TAB PO SCH (09:00)
[2020-07-16] MEDS ORDERED: TOCOPHERYL, DL-ALPHA 100 UNITS CAP PO SCH (09:00)
[2020-07-16] MEDS ORDERED: NON-FORMULARY MEDICATION (Coenzyme Q10 [Coq-10] 100 mg Capsule) PO SCH (09:00)
[2020-07-16] MEDS ORDERED: INSULIN ASPART PER UNIT SQ SCH (09:00)
[2020-07-16] MEDS ORDERED: MULTIVITAMIN TAB PO SCH ×2 (09:00)
[2020-07-16] MEDS ORDERED: cephALEXin 500 MG CAP PO SCH (09:00)
[2020-07-16] MEDS ORDERED: OMEGA-3 (PURIFIED FISH OIL) 1 GM CAP PO SCH (09:00)
[2020-07-16] MEDS: HYDROmorphone HCL 2 MG TAB PO PRN (12:12)
--- NOTE | 2020-07-25 08:16 | Discharge Summary ---
Date of Service July 25, 2020 Admission HPI Per Admitting Provider Well documented in the patient's chart Principal Diagnosis Revision left total knee replacement Discharge Data Allergies Allergy/AdvReac Type Severity Reaction Status Date / Time shellfish derived Allergy Severe SWELLING Verified 07/15/20 07:11 OF THROAT diltiazem Allergy Unknown UNKNOWN Verified 07/15/20 07:11 fentanyl Allergy Unknown LOOOPY Verified 07/15/20 07:11 FEELING-DIDN'T FEEL RIGHT simvastatin Allergy Unknown UNKNOWN Verified 07/15/20 07:11 Sulfa (Sulfonamide AdvReac Unknown GI SYMPTOMS Verified 07/15/20 07:11 Antibiotics) Consultations 07/15/20 13:36 Consult Case Management - Discharge Planning Routine Procedures Performed Operation Date: 07/15/20 08:20 Actual Procedures p Revision Left Total Knee Replacement(Left) - Devaughn Cantu MD Ordered Studies 07/15/20 05:00 US - OR guided needle placemen Routine Hospital Course (1) Status post revision of total replacement of left knee: Mushtaq is an 79 year old male who presented to [facility] on 07/15/20 for a revision left total knee replacement. He tolerated the procedure well, without complication. He was transferred to the PACU postoperatively and then later transferred to the general orthopedic floors. On post op day one his pain was well controlled. His vital signs and H&H were stable. He visited with physical therapy for ambulatory assistance. A underwood catheter was placed and he was given prophylactic antibiotics. The underwood catheter was managed by urology. He was then discharged home with thigh high TEDs, SCDs, and aspirin BID for DVT prophylaxis. He will remain weight bearing as tolerated on his left lower extremity. Pain medication was sent to his pharmacy. He will follow up in our orthopedic office in two weeks for staple removal and reevaluation. Total Time Total Time Spent Total Time Spent (In Minutes): 20 minutes Discharge Plan Discharge Items Patient Disposition: Home - Self-Care Reason For Visit: Painful Left Total Knee Replacement Discharge Diagnosis: Left Knee Replacement Activity: Per Instructions section Weightbearing: Full weightbearing Non-emergency contact: Surgeon Call non-emergency contact if: you have any medication questions Follow-up/Referrals: Zach Friedman MD [Primary Care Provider] - Diet: Carb Consistent or DM2 Addtl Attending Provider Instructions: ACTIVITY RECOMMENDATIONS: Physical Therapy: * You will go to physical therapy three times each week for four to six weeks after your surgery in order to regain your knee range of motion and to retrain your knee to work properly. * It is just as important to make sure you are getting your knee perfectly straight as it is to regain your knee bend. * Taking a pain pill an hour before therapy can help you have a more productive and comfortable therapy session. Home Exercise: * You were shown a series of exercises (heel props, heel slides, etc.) in the hospital. Do these exercises three to four times each day including the exercises you were shown in physical therapy. Walking: * Get up and walk several times each day. For the first four weeks, try not to stand or walk for more than one hour at a time. If you do stand or walk for more than one hour, you will not hurt anything, but your knee and leg will likely swell. * As you feel comfortable, you may change from the walker or crutches to a cane and then to independent walking. MEDICATIONS: New Medicine: * You will likely be taking one or more of these medications: 1. Dilaudid- A quick and shorter-acting pain medication. Take one to two tablets every six hours to lessen your pain. 2. Iron Sulfate - Take two times each day for the month after surgery to help you replace the blood lost during surgery. 3. Aspirin - Thins your blood to lessen the chance of forming a blood clot. 4. Keflex - take while catheter in place to prevent infection * The most common side effects of pain medicine and iron are nausea and constipation. If nausea or constipation is too much of a problem or if you have any questions about your new medicines or doses, call [facility] at . We will try to help you manage these issues. "VERY IMPORTANT TO READ AND REVIEW" Pain: * The immediate post-operative period after knee replacement surgery is often quite painful. * You are given a prescription for pain medicine. You should take it, as directed, when you need it, especially before physical therapy and before going to bed. Pain that interferes with sleep is very common and can last several months. * You will likely need pain medicine for the first four to six weeks. It will not stop all of the pain. The pain will lessen and as you feel better, you may change to milder pain medicine such as Tylenol. * The most common side effects of pain medicine are nausea and constipation, so don't take more than you need. SPECIAL CARE INSTRUCTIONS: TEDs/Elastic Stockings: * The white elastic stockings help limit swelling and prevent blood clots from forming in your legs. The more you wear them, the more they work. * Wear them for six weeks after knee replacement surgery and four weeks after partial knee replacement. Prevention of Infection: * Take antibiotics one hour before any dental cleaning, dental work, urological procedure, gastrointestinal procedure or any invasive surgery in order to prevent your new joint from getting infected. * You may get the antibiotics from the doctor performing the procedure or you may call our office at before and we will call in a prescription to the pharmacy of your choice. Things to Watch For: * Drainage from the incision site that occurs more than one week after your surgery. * Severely increased knee/leg pain or swelling. * Increased redness at the incision site. * Fever above 102 degrees Fahrenheit. * Unusual chest pain or shortness of breath. * Unusual pain or burning with urination. Call [facility] at with any of the above problems or if you have any questions about your medicines or recovery. FOLLOW UP VISIT: Make an appointment to see your doctor for approximately two weeks after surgery for a progress check and staple removal by calling the office at . Pending Studies at Discharge: No Stand-Alone Forms: [facility], Opioid Pain Management, Smoking Cessation Medications and DC Order Prescriptions: New ferrous gluconate 324 mg (38 mg iron) Tablet 324 mg PO BIDM 30 Days Qty: 60 RF: 0 acetaminophen 500 mg Tablet 1,000 mg PO Q8 30 Days Qty: 180 RF: 0 aspirin 81 mg Tablet,Delayed Release (Dr/Ec) 81 mg PO BID 45 Days Qty: 90 RF: 0 cephalexin 500 mg Capsule 500 mg PO TID 10 Days Qty: 30 RF: 0 Continued amlodipine 5 mg tablet 5 mg PO QPM Qty: 90 RF: 3 atorvastatin 20 mg tablet 20 mg PO PM Qty: 90 RF: 3 lisinopril 40 mg tablet 40 mg PO QPM Qty: 90 RF: 3 Novolog U-100 Insulin aspart 100 unit/mL solution 150 units continuous subcutaneous infusion DAILY Qty: 140 RF: 3 vitamin E 200 unit capsule 400 units PO QAM RF: 0 omega [id number] oil [Fish Oil] 1,000 mg (120 mg-180 mg) capsule 2 cap PO DAILY RF: 0 multivitamin Tablet 1 tab PO QAM RF: 0 Vitamin C Powder 1 g PO BID RF: 0 alprazolam [Xanax] 0.25 mg Tablet 0.125 mg PO HS PRN (Reason: Anxiety) RF: 0 etodolac 500 mg Tablet 500 mg PO BID PRN (Reason: Pain) RF: 0 coenzyme Q10 [CoQ-10] 100 mg Capsule 200 mg PO QAM RF: 0 cholecalciferol (vitamin D3) [Vitamin D3] 5,000 unit Tablet 5,000 unit PO QAM RF: 0 No Action hydromorphone [Dilaudid] 2 mg tablet 2 mg PO Q4H PRN (Reason: pain) Qty: 40 RF: 0 ondansetron HCl 4 mg tablet 4 mg PO Q6 PRN (Reason: nausea) Qty: 20 RF: 0 Discharge Orders: Discharge Order (Routine); Ordered 07/16/20 Ordered By: Devaughn Cantrell/Other Patient Handouts: DVT Post Op Prevention Admission Data Admit Date/Time: 07/15/20 12:39 Attending Provider: Devaughn Cantu Admit Provider: Devaughn Cantu Primary Care Provider: Zach Friedman Other Interventions: Discharge Summary Assessment (RN) Last Done: 07/16/20 10:08
== END 2020-07-16 12:26 | disposition home or self-care (01) | DRG 468 ==
LOC: ASU 06:42 → 3E 06:42 → OBSVTOIN 12:39